=== PATIENT | female | born 1955 | race Caucasian/White ===

== ENCOUNTER 2017-09-12 13:31 | Outpatient (CLI) | payer OTHER ==
--- NOTE | 2017-09-12 15:39 | ULT ---
LEFT LOWER EXTREMITY VENOUS DOPPLER ULTRASOUND 09/12/17 COMPARISON: None. HISTORY: Left knee pain, swelling, assess for DVT. TECHNIQUE: Multiplanar richards scale sonographic imaging of the venous structures of the left lower extremity obtai gera with color flow and spectral analysis. FINDINGS: The left common femoral vein, greater saphenous vein, profunda femoral vein, femoral vein, popliteal vein, and posterior tibial vein are patent. There is a complex heterogenous hypoechoic lesion within the popliteal fossa on the left with no inte rnal blood flow and numerous internal septations measuring at least 3.8 x 1.5 x 5.1 cm. there is no e vidence for DVT on the left. IMPRESSION: No evidence for deep venous thrombosis of the left lower extremity. Prominent complex popliteal fossa cyst. POS: KIM
== END 2017-09-12 13:32 | disposition home or self-care (01) ==
LOC: ULT 13:31
PROVIDERS: ATTEND Family Medicine
DX: M25.562 Pain in left knee (principal); M71.22 Synovial cyst of popliteal space [Baker], left knee

== ENCOUNTER 2018-08-27 07:33 | Outpatient (CLI) | payer OTHER ==
--- NOTE | 2018-08-27 10:15 | MRI ---
MRI LUMBAR SPINE WITHOUT CONTRAST: Date: 08/27/18 HISTORY: M50.36 degenerative disc disease of lumbar spine. Pain. COMPARISON: Radiographs from 08/04/18. FINDINGS: There is mild dilatation of the left proximal ureter with smooth tapering approximately 4.0 cm distal to the renal pelvis. Aortic contour is nonaneurysmal. Mild bilateral paraspinal muscle atrophy. No retroperitoneal adenopathy. No marrow infiltrative process. The conus medullaris terminates at the superior end plate of L2. Levels are as follows: L1-2: Moderate facet arthrosis. No neural foraminal or spinal canal narrowing. L2-3: Mild disc desiccation. Moderate facet arthropathy. Small bilateral subforaminal and posterior disc osteophyte complexes. No significant neural foraminal or spinal canal narrowing. L3-4: Mild disc desiccation. Low grade circumferential disc bulge. Moderate to severe hypertrophic f acet arthrosis. There is moderate left and mild right-sided neural foraminal narrowing. L4-5: There is a left paracentral and subforaminal posterior disc protrusion. This is superimposed o n a broad based posterior disc osteophyte complex. Disc protrusion abuts the left L5 and S1 nerve vianca ts. Moderate left-sided neural foraminal narrowing. Mild right-sided neural foraminal narrowing. Lauren re facet arthropathy. L5-S1: Circumferential disc bulge. Moderate to severe facet arthrosis. Moderate bilateral neural for aminal narrowing. The disc bulge does cause abutment of both S1 nerve roots. IMPRESSION: Spondylosis centered at L4-5 and L5-S1 with a left paracentral and subforaminal L4-5 posterior disc p rotrusion with nerve root abutment. There is also nerve root abutment at L5-S1 due to broad based pos terior disc osteophyte complex. POS: TPC
== END 2018-08-27 07:34 | disposition home or self-care (01) ==
LOC: BICMRI 07:33
PROVIDERS: ATTEND Family Medicine
DX: M51.36 Other intervertebral disc degeneration, lumbar region (principal); M47.816 Spondylosis without myelopathy or radiculopathy, lumbar region; M47.817 Spondylosis without myelopathy or radiculopathy, lumbosacral region; M51.26 Other intervertebral disc displacement, lumbar region; M25.78 Osteophyte, vertebrae
CPT/HCPCS: 72148

== ENCOUNTER 2018-10-07 06:35 | Day surgery (SDC) | payer OTHER ==
[2018-09-29 17:31] VITALS: BMI 28.1
[2018-10-07] MEDS ORDERED: Bupivacaine HCl 0.5%/Epinephrine 1:200,000/PF 30 ml Vial ONE (06:48)
[2018-10-07] MEDS ORDERED: Thrombin 5000 UNITS/5 ML VIAL ONE (06:48)
[2018-10-07] MEDS ORDERED: Midazolam HCl 2 mg/2 ml Vial ONE (07:21)
[2018-10-07] MEDS ORDERED: Famotidine/PF 20 mg/2ml Vial ONE (07:22)
[2018-10-07] MEDS ORDERED: Ketamine 50 MG/ML (10ML VIAL) ONE (07:22)
[2018-10-07] MEDS ORDERED: Fentanyl 100 MCG/2 ML VIAL ONE ×2 (09:14→09:43)
[2018-10-07] MEDS ORDERED: Morphine 4 MG/ML VIAL ONE (09:40)
[2018-10-07] MEDS ORDERED: Morphine 2 MG/ML SYRINGE ONE (09:52)
--- NOTE | 2018-10-07 10:12 | OP ---
DATE OF PROCEDURE: 10/07/2018 CHIEF YEOMAN: Francisco Benavidez PA-C INDICATION: Pain. DIAGNOSIS: Lumbar radiculopathy. PROCEDURE PERFORMED: Left L4 diskectomy. ANESTHESIA: General. DESCRIPTION OF PROCEDURE: The patient was brought into the operating room and placed under general anesthesia. She was flipped from the supine to prone position on the operating room table. A linear incision was planned over the L4 segment. After prepping and draping and after an appropriate preoperative pause, the incision was created. The soft tissues were swept left of midline. A self-retaining retractor was placed in the wound for optimal exposure. After confirming the appropriate level with C-arm fluoroscopy, high-speed cutting drill bit as well as 2, 3, and 4 mm Kerrisons were used to perform a laminectomy along the inferior aspect of L4 and the superior aspect of L5. The descending L5 nerve root was identified and mobilized medially. An L4 protuberant disk mass was identified and incised with an 11 blade knife. The protuberant disk mask was carefully removed until the descending L5 nerve root was well decompressed. The wound was then irrigated. Hemostasis was maintained throughout. The wound was then closed in anatomic layers and a pressure dressing was applied. There were no known procedural complications. Job ID: [id number]
== END 2018-10-07 13:25 | disposition home or self-care (01) ==
LOC: SDC 06:35
PROVIDERS: ATTEND Neurological Surgery
PROC: 0SB20ZZ Excision of Lumbar Vertebral Disc, Open Approach (ICD-10-PCS; principal; 2018-10-07)
DX: M51.16 Intervertebral disc disorders with radiculopathy, lumbar region (principal); E03.9 Hypothyroidism, unspecified; F32.9 Major depressive disorder, single episode, unspecified; J45.909 Unspecified asthma, uncomplicated; M19.90 Unspecified osteoarthritis, unspecified site; Z79.891 Long term (current) use of opiate analgesic; Z79.51 Long term (current) use of inhaled steroids; Z79.899 Other long term (current) drug therapy
CPT/HCPCS: 76000; J0670; J2250; J2270; J3010; S0028

== ENCOUNTER 2019-11-06 07:32 | Emergency (ER) | payer MEDICARE ==
[2019-11-06] MEDS ORDERED: Fentanyl 100 MCG/2 ML VIAL ONE (07:54)
[2019-11-06 08:22] LABS: #Basophils 0.2 thou/uL (0.0-0.2); #Eosinphils 0.3 thou/uL (0.0-0.7); #Monocytes 0.4 thou/uL (0.11-0.59); #Neutrophils 3.3 thou/uL (1.40-6.50); %Basophils 2.6 % (0.0-1.0); %Eosinophils 5.5 % (0.0-10.0); %Lymphocytes 32.8 % (21.0-51.0); %Monocytes 6.1 % (0.0-10.0); ALT (SGPT) 16 U/L (8-55); AST (SGOT) 13 U/L (5-34); Albumin 4.2 g/dL (3.4-4.8); Alkaline Phosphatase 60 U/L (40-110); Anion Gap 14 mmol/L (10-20); BUN (Urea Nitrogen) 14 mg/dL (9.8-20.1); Bilirubin, Total 0.4 mg/dL (0.2-1.2); CRP (Inflammatory) Less than 0.50 mg/dL (= or < 0.5); Calc. Creatinine Clearance 0 mL/min (70-130); Calcium 9.5 mg/dL (7.8-10.44); Carbon Dioxide 25 mmol/L (23-31); Chloride 105 mmol/L (98-107); Estimated GFR-MDRD 69; Glucose 100 mg/dL (80-115); Hemoglobin 14.9 g/dL (12.0-16.0); Mean Corpuscular HGB CONC 32.3 g/dL (32.0-36.0); Mean Corpuscular Hemoglobin 31.9 pg (27.0-31.0); Mean Corpuscular Volume 98.6 fL (78.0-98.0); Platelet Count 250 thou/uL (130-400); Protein, Total 7.2 g/dL (6.0-8.3); RBC Distribution Width 12.3 % (11.5-14.5); Red Blood Cell (RBC) Count 4.67 mill/uL (4.20-5.40); Sodium 140 mmol/L (136-145); White Blood Cell (WBC) Count 6.1 thou/uL (4.8-10.8)
[2019-11-06] MEDS ORDERED: Diazepam 10 MG/2 ML SYRINGE ONE (08:54)
--- NOTE | 2019-11-06 08:56 | CT ---
CT LUMBAR SPINE PERFORMED WITHOUT CONTRAST ENHANCEMENT: History: Worsening back pain and pain radiating down left leg. Comparison: MRI, 08-27-18 FINDINGS: The vertebral bodies are normal in height. There is very minimal spondylolisthesis of approximately 4 mm of L4 on L5. There is some mild disc narrowing at L5-S1. There is no significant periaortic adenopathy. The visualized portions of the kidneys appear unremark able. T12-L1: Unremarkable. L1-2: Unremarkable. L2-3: Degenerative facet changes without canal or foraminal stenosis. L3-4: There is mild disc bulge at this level. There are facet and ligamentous hypertrophic changes, b orderline canal narrowing. Disc bulge is slightly asymmetric to the left but not associated with any significant foraminal narrowing. L4-5: Disc bulge is present at this level. There is a left paracentral disc protrusion seen on the pr ior examination. It is not definitely visualized on today's study. Differentiation between thecal sac and disc material is somewhat difficult. L5-S1: There has been development of a small left paracentral disc protrusion at this level. This byrd s impress slightly on the left S1 nerve root. IMPRESSION: 1. Small left paracentral disc protrusion, however, it does appear to slightly compress upon the left S1 nerve root. 2. The left paracentral disc protrusion at L4-5 that was noted on the prior examination is not defini tely visualized on today's study. POS: Humberto
[2019-11-06 09:46] LABS: Bilirubin Negative (Negative); Blood, Urine Negative (Negative); Clarity Clear (Clear); Glucose, Urine (Dipstick) Normal (Negative); Leukocyte Negative Leu/uL (Negative); Nitrite Negative (Negative); Protein, Urine (Dipstick) Negative (Neg-Trace); Urobilinogen Normal mg/dL (Less than 2)
[2019-11-06] MEDS ORDERED: Dexamethasone 10 MG/ML VIAL ONE (10:21)
[2019-11-06] MEDS ORDERED: Ketorolac Tromethamine 30 MG/ML VIAL ONE (10:21)
== END 2019-11-06 11:26 | disposition home or self-care (01) ==
LOC: ERS 07:32
DX: G54.8 Other nerve root and plexus disorders (principal); J45.909 Unspecified asthma, uncomplicated; F32.9 Major depressive disorder, single episode, unspecified; E03.9 Hypothyroidism, unspecified; Z79.899 Other long term (current) drug therapy
CPT/HCPCS: 51701; 72131; 80053; 81003; 85025; 85652; 86140; 96374; 96375; J1100; J1885; J3010; J3360

== ENCOUNTER 2019-11-10 14:45 | Outpatient (CLI) | payer MEDICARE ==
--- NOTE | 2019-11-10 16:09 | MRI ---
MRI LUMBAR SPINE WITH AND WITHOUT CONTRAST: DATE: 11/10/2019 HISTORY: 64-year-old female with lumbar radiculopathy, low back pain, and decreased range of motion. COMPARISON: 08/27/2018 TECHNIQUE: Multiple sequences obtained in axial and sagittal planes, pre and post IV injection of gadolinium-bas ed contrast agent. FINDINGS: There are 5 lumbar-type vertebrae. Vertebral body heights are maintained. No bone marrow major signal abnormality. Conus medullaris terminates at L2. Cauda equina arrangement within normal limits. T12-L1:Essentially normal. L1-2:Normal L2-3:Mild to moderate bilateral facet DJD. Otherwise normal. L3-4:Moderate right facet DJD. Mild left facet DJD. No central stenosis. No significant neural forami nal stenosis, despite left lateral focal disc herniation which was present on the previous MRI. However, the small medial portion of this disc herniation abuts the left L4 nerve root as it exits th e thecal sac, a new finding (axial image 40 of 64, series 6). No central stenosis. L4-5:Severe bilateral facet DJD causes mild grade 1 anterolisthesis of L4 on L5. There has been inter jae left hemilaminotomy, which results in interval widening of the spinal canal and thecal sac, of generous caliber. There has been interval surgical resection of a significant portion of the left par acentral-lateral focal disc herniation that was previously impinging on the left L5 nerve root. Currently, there is postsurgical scar tissue surrounding that left L5 nerve root at the lateral reces s. No neural foraminal stenosis. Mild-moderate disc space narrowing. L5-S1:No significant neural foraminal stenosis or significant central spinal canal stenosis. Moderate disc space narrowing. Diffuse disc bulge. There is a new finding of a greater amount of material in the left subarticular zone (left lateral recess of anterolateral epidural space). This material is of intermediate signal intensity on T2 WI, has heterogeneous enhancement that surrounds the now posteriorly displaced left S1 nerve root, and has hypointense signal on T1 WI. The surrounding enhanc ement of the epidural space effaces the left lateral aspect of the thecal sac. IMPRESSION: 1) a greater degree of impingement and posterior displacement of the left S1 nerve root at the left l ateral recess of L5-S1 level, with enhancing tissue surrounding the left S1 nerve root. This appears to be a left paracentral-lateral focal small disc herniation that is impinging on the left S1 nerve root. The enhancing tissues probably represent granulation tissue associated with inflammation. Alternatively, if there has been left hemilaminectomy at this level, the enhancement co uld represent postsurgical scar tissue. Recommend correlation with exact levels of previous laminectomy. 2) interval left hemilaminectomy at L4-5, with resection of the previously demonstrated left-sided di sc herniation. Currently, there is postsurgical scar tissue surrounding the left L5 nerve root at the lateral recess. 3) no high-grade central spinal canal stenosis or high-grade neural foraminal stenosis at any level. 4) grade 1 spondylolisthesis at L4-5 due to severe bilateral facet osteoarthrosis, unchanged.
== END 2019-11-10 14:46 | disposition home or self-care (01) ==
LOC: TBSIIMAG 14:45
PROVIDERS: ATTEND Neurological Surgery
DX: M54.16 Radiculopathy, lumbar region (principal); Z98.890 Other specified postprocedural states; M43.16 Spondylolisthesis, lumbar region
CPT/HCPCS: 72158

== ENCOUNTER 2019-12-20 06:32 | Outpatient (CLI) | payer MEDICARE, OTHER | END 2019-12-20 06:33 | disposition home or self-care (01) | LOC: LABBT 06:32 | PROVIDERS: ATTEND Neurological Surgery | DX: Z01.812 Encounter for preprocedural laboratory examination (principal); Z11.59 Encounter for screening for other viral diseases; M54.16 Radiculopathy, lumbar region | CPT/HCPCS: 87635; U0003 ==

== ENCOUNTER 2019-12-27 06:22 | Outpatient (CLI) | payer MEDICARE, OTHER ==
[2019-12-28 13:11] LABS: SARS-CoV-2 MS2 Positive; SARS-CoV-2 N Gene Negative; SARS-CoV-2 S Gene Negative; SARS-CoV-2 orf1ab Negative
== END 2019-12-27 06:23 | disposition home or self-care (01) ==
LOC: LABBT 06:22
PROVIDERS: ATTEND Neurological Surgery
DX: Z01.812 Encounter for preprocedural laboratory examination (principal); Z11.59 Encounter for screening for other viral diseases; M54.16 Radiculopathy, lumbar region
CPT/HCPCS: 87635; U0003

== ENCOUNTER 2019-12-31 07:10 | Day surgery (SDC) | payer MEDICARE ==
[2019-12-16 13:42] VITALS: BMI 28.0
--- NOTE | 2019-12-31 08:10 | HP ---
HISTORY OF PRESENT ILLNESS: Ms. Sanders was sent to us for prior lumbar decompression and diskectomy back in the later spring. She unfortunately returns now with rather severe left-sided lumbar radiculopathy that would fit well L5 or S1 pattern. She has a new MRI scan that reveals a larger disk herniation at L5 on the left. It is compressing the left S1 nerve root. She hopes to discuss possible surgical intervention to correct this given the success of her last operation. PAST MEDICAL HISTORY: Significant for hypothyroidism, depression, arthritis, seasonal allergies, asthma. PAST SURGICAL HISTORY: section, unspecified nasal surgery, lumbar diskectomy. CURRENT MEDICATIONS: None listed. ALLERGIES: NO KNOWN DRUG ALLERGIES. PHYSICAL EXAMINATION: Deferred for telehealth visit. ASSESSMENT: Lumbar disk herniation with radiculopathy. PLAN: Dr. Anderson met with the patient, reviewed imaging, and advocated for a left L5-S1 decompression with possible diskectomy. He explained the patient risks, benefits, and alternatives to the procedure. The patient expressed understanding and elected to move forward with surgery as discussed. I do believe that the patient is mentally competent and capable of making medical decisions for herself. We will move forward with surgery as planned. Job ID: [id number]
[2019-12-31] MEDS ORDERED: Bupivacaine PF 0.5% 30 ML VIAL ONE (09:48)
[2019-12-31] MEDS ORDERED: EPINEPHrine 1 MG/ML AMP ONE (09:48)
[2019-12-31] MEDS ORDERED: Midazolam HCl 2 mg/2 ml Vial ONE (10:25)
[2019-12-31] MEDS ORDERED: Fentanyl 100 MCG/2 ML VIAL ONE ×4 (10:25→12:37)
[2019-12-31] MEDS ORDERED: diphenhydrAMINE 50 MG/ML VIAL ONE (10:50)
[2019-12-31] MEDS ORDERED: EPHEDRINE 25 MG/5 ML SYRINGE ONE (10:50)
[2019-12-31] MEDS ORDERED: Lidocaine 1% PF 5 ML VIAL ONE (10:50)
[2019-12-31] MEDS ORDERED: Dexamethasone 20 MG/5 ML VIAL ONE (10:50)
[2019-12-31] MEDS ORDERED: Ketorolac Tromethamine 30 MG/ML VIAL ONE (10:50)
[2019-12-31] MEDS ORDERED: PROPOFOL 200 MG/20 ML VIAL ONE (10:50)
[2019-12-31] MEDS ORDERED: Rocuronium Bromide 10 MG/ML (10ML VIAL) ONE (10:50)
[2019-12-31] MEDS ORDERED: Ondansetron PF 4 MG/2 ML Vial ONE (10:50)
[2019-12-31] MEDS ORDERED: SUGAMMADEX SODIUM 200 MG/2 ML VIAL ONE (11:23)
--- NOTE | 2019-12-31 12:32 | OP ---
DATE OF PROCEDURE: 12/31/2019 ELECTRONIC OPERATOR: Francisco Benavidez PA-C INDICATION: Pain. DIAGNOSIS: Left S1 radiculopathy. PROCEDURE PERFORMED: Left L5 diskectomy. ANESTHESIA: General. DESCRIPTION OF PROCEDURE: The patient was brought into the operating room and placed under general anesthesia. She was flipped from the supine to prone position on the operating room table. A linear incision was planned over L5-S1. After prepping and draping and after an appropriate preoperative pause, the incision was created. The soft tissues were swept away from midline. A self-retaining retractor was placed in the wound for optimal exposure. After confirming the appropriate level with C-arm fluoroscopy, an annulotomy was performed along the inferior aspect of L5 and the superior aspect of S1. The decompression was extended laterally to encompass the medial aspect of the facet joint to further decompress the lateral recesses. The S1 nerve root was identified and mobilized medially. An annulotomy was performed in the L5 disk, where a protuberant disk mass was removed. After decompressing, the wound was irrigated. Hemostasis was maintained throughout. The wound was then closed in anatomic layers and a pressure dressing was applied. There were no known procedural complication. Job ID: [id number]
== END 2019-12-31 15:24 | disposition home or self-care (01) ==
LOC: SDC 07:10
PROVIDERS: ATTEND Neurological Surgery
PROC: 0SB20ZZ Excision of Lumbar Vertebral Disc, Open Approach (ICD-10-PCS; principal; 2019-12-31)
DX: M51.16 Intervertebral disc disorders with radiculopathy, lumbar region (principal); E03.9 Hypothyroidism, unspecified; F32.9 Major depressive disorder, single episode, unspecified; M19.90 Unspecified osteoarthritis, unspecified site; J45.909 Unspecified asthma, uncomplicated; Z79.899 Other long term (current) drug therapy
CPT/HCPCS: 76000; J0171; J0690; J1100; J1200; J1885; J2001; J2250; J2405; J2704; J3010; J7620; S0020

== ENCOUNTER 2020-03-21 14:32 | Outpatient (CLI) | payer MEDICARE ==
[~2020-03-21 14:32] MED LIST: Magnevist 469MG/ML 20 ML VIAL ONE
--- NOTE | 2020-03-21 16:38 | MRI ---
MRI Lumbar Spine W WO Con History: M [age] lumbar radiculopathy Comparison: MRI lumbar spine October 2019 Findings: Aortic contour is nonaneurysmal. No retroperitoneal periaortic adenopathy. No hydronephrosis. No marrow infiltrative process. Levels are as follows: L1/L2: Normal disc height and hydration. No neural foraminal or spinal canal narrowing. L2/L3: Normal disc height with minimal desiccation. Mild hypertrophic facet arthrosis. Small asymmetr ic left lateral recess and right lateral recess disc bulges. L3/L4: Minimal disc desiccation height loss. Similar appearance of the left lateral recess disc herni ation which abuts the exiting and traversing nerve roots. Moderate hypertrophic facet arthrosis on the left and moderate to severe on the right. Moderate left and mild right neural foraminal narrowing . No spinal canal narrowing. L4/L5: Mild disc desiccation and height loss. Severe facet arthropathy with joint space narrowing and osteophyte formation. 1 mm anterolisthesis. Moderate disc bulge. Mild bilateral neural foraminal narrowing. The amount of enhancing granulation tissue along the exiting left L4 nerve root as decreased. L5/S1: Mild to moderate disc desiccation and height loss. Small circumferential disc bulge. Moderate left neural foraminal narrowing. Postsurgical scar information from recent left L5 discectomy and hemifacetectomy. Impression: Findings of recent left L5 discectomy and L5/S1 hemifacetectomy with decreased mass effec t upon the left S1 nerve root.
== END 2020-03-21 14:33 | disposition home or self-care (01) ==
LOC: TBSIIMAG 14:32
PROVIDERS: ATTEND Neurological Surgery
DX: M54.16 Radiculopathy, lumbar region (principal); Z98.890 Other specified postprocedural states
CPT/HCPCS: 72158; 82565; A9579

== ENCOUNTER 2020-12-27 12:52 | Outpatient (CLI) | payer MEDICARE | END 2020-12-27 12:53 | disposition home or self-care (01) | LOC: BICMAMMO 12:52 | PROVIDERS: ATTEND Physician Assistant | DX: Z12.31 Encounter for screening mammogram for malignant neoplasm of breast (principal); Z80.3 Family history of malignant neoplasm of breast | CPT/HCPCS: 77063; 77067 ==

== ENCOUNTER 2021-04-20 07:12 | Inpatient (IN) | payer MEDICARE ==
[2021-04-20 08:14] LABS: Amphetamine Not Detected (NotDetected); Barbiturates Screen Not Detected (NotDetected); Benzodiazepine Screen Not Detected (NotDetected); Cocaine Metabolite Screen Not Detected (NotDetected); Methadone Not Detected (NotDetected); Methamphetamine Not Detected (NotDetected); Opiate Screen Not Detected (NotDetected); Oxycodone Screen Not Detected (NotDetected); Phencyclidine (PCP) Not Detected (NotDetected); THC/Cannabinoid Screen Not Detected (NotDetected); Tricyclic Screen Not Detected (NotDetected)
[2021-04-20 08:32] LABS: Bilirubin Negative (Negative); Blood, Urine Negative (Negative); Clarity Clear (Clear); Glucose, Urine (Dipstick) Normal (Negative); Ketone, Urine Negative (Negative); Leukocyte Negative Leu/uL (Negative); Nitrite Negative (Negative); Protein, Urine (Dipstick) Negative (Neg-Trace); Specific Gravity, Urine 1.019 (1.002-1.036); Urobilinogen Normal mg/dL (Less than 2)
[2021-04-20 08:41] LABS: ALT (SGPT) 27 U/L (8-55); AST (SGOT) 18 U/L (5-34); Albumin 3.5 g/dL (3.4-4.8); Alkaline Phosphatase 96 U/L (40-110); Anion Gap 15 mmol/L (10-20); BUN (Urea Nitrogen) 11 mg/dL (9.8-20.1); Bilirubin, Total 0.4 mg/dL (0.2-1.2); Calc. Creatinine Clearance 0 mL/min (70-130); Calcium 8.8 mg/dL (7.8-10.44); Carbon Dioxide 22 mmol/L (23-31); Chloride 109 mmol/L (98-107); Globulin 2.8 g/dL (2.4-3.5); Glucose 92 mg/dL (80-115); Potassium 4.7 mmol/L (3.5-5.1); Protein, Total 6.3 g/dL (5.8-8.1); Sodium 141 mmol/L (136-145)
[2021-04-20 08:58] LABS: Acetaminophen Less than 6.0 mcg/mL (10.0-30.0); Alcohol Less than 10 mg/dL (Less than 10); Salicylate Less than 8.0 mg/dL (15.0-30.0)
[2021-04-20 09:19] LABS: #Basophils 0.1 thou/uL (0.0-0.2); #Eosinphils 0.4 thou/uL (0.0-0.7); #Lymphocytes 2.4 thou/uL (1.20-3.40); #Monocytes 0.7 thou/uL (0.11-0.59); #Neutrophils 4.5 thou/uL (1.40-6.50); %Basophils 0.9 % (0.0-1.0); %Eosinophils 5.3 % (0.0-10.0); %Lymphocytes 29.3 % (21.0-51.0); %Monocytes 8.6 % (0.0-10.0); %Neutrophils 55.9 % (42.0-75.0); Hemoglobin 14.6 g/dL (12.0-16.0); Mean Corpuscular HGB CONC 31.8 g/dL (32.0-36.0); Mean Corpuscular Volume 97.4 fL (78.0-98.0); Mean Platelet Volume 7.5 fL (7.4-10.4); Platelet Count 291 thou/uL (130-400); Red Blood Cell (RBC) Count 4.72 mill/uL (4.20-5.40); White Blood Cell (WBC) Count 8.1 thou/uL (4.8-10.8)
[2021-04-20 09:24] LABS: PTT 24.3 sec (22.9-36.1); Prothrombin Time 12.8 sec (12.0-14.7)
[2021-04-20] MEDS ORDERED: cefTRIAXone\\ROCEPHIN 2 GM VIAL ONE (09:45)
[2021-04-20] MEDS ORDERED: Azithromycin 500 MG VIAL ONE (09:45)
[2021-04-20] MEDS ORDERED: Acetaminophen 325 MG TAB PO PRN (10:00)
[2021-04-20] MEDS ORDERED: HYDROcodone/Acetaminophen 5/325 mg Tablet PO PRN (10:00)
[2021-04-20] MEDS ORDERED: Enoxaparin Sodium 40 MG/0.4 ML SYRINGE SC SCH (10:00)
[2021-04-20 10:37] LABS: SARS-CoV-2 NAA Rapid Test Not Detected (NotDetected)
[2021-04-20] MEDS ORDERED: Albuterol Sulfate 1.25 MG/3 ML NEB INH PRN (10:43)
[2021-04-20] MEDS ORDERED: Magnevist 469MG/ML 20 ML VIAL ONE ×2 (12:13)
[2021-04-20 13:07] LABS: Lactic Acid 0.9 mmol/L (0.5-2.2)
[2021-04-20 13:30] VITALS: BMI 29.8
[2021-04-20 13:32] LABS: Free T4 (Free Thyroxine) 1.07 ng/dL (0.70-1.48)
[2021-04-20] MEDS: Sodium Chloride 0.9% 1,000 ML IV SCH ×2 (14:32→21:47)
[2021-04-20] MEDS: Acetaminophen/Codeine 30-300mg Tablet PO PRN (16:52)
[2021-04-20] MEDS: Ondansetron PF 4 MG/2 ML Vial IVP PRN (17:52)
[2021-04-20] MEDS: Cholecalciferol 1,000 UNITS (25 MCG) TAB PO SCH (21:45)
[2021-04-21] MEDS: Sodium Chloride 0.9% 1,000 ML IV SCH ×2 (05:45→16:47)
[2021-04-21] MEDS: Levothyroxine Sodium 100 MCG TAB PO SCH (05:52)
[2021-04-21] MEDS: Ondansetron PF 4 MG/2 ML Vial IVP PRN ×2 (05:52→16:44)
[2021-04-21] MEDS: FLUoxetine HCl 20 MG CAP PO SCH (08:18)
[2021-04-21] MEDS: Loratadine 10 MG TAB PO SCH (08:18)
[2021-04-21] MEDS: Enoxaparin Sodium 40 MG/0.4 ML SYRINGE SC SCH (08:18)
[2021-04-21] MEDS: cefTRIAXone\\ROCEPHIN 1 GM in Sodium Chloride 0.9% 100 ML IVPB SCH (08:24)
[2021-04-21] MEDS: Mometasone 200 MCG/Formoterol 5 MCG 120 PUFF INHALER INH SCH (08:24)
[2021-04-21] MEDS: Azithromycin 500 MG in Sodium Chloride 0.9% 250 ML 250 ML IVPB SCH (10:35)
[2021-04-21] MEDS: Fluticasone Propionate Nasal Spray 16 gm Bottle NASAL SCH (10:35)
[2021-04-21] MEDS: Cholecalciferol 1,000 UNITS (25 MCG) TAB PO SCH (20:26)
[2021-04-21] MEDS: Acetaminophen/Codeine 30-300mg Tablet PO PRN (22:24)
[2021-04-22] MEDS: Sodium Chloride 0.9% 1,000 ML IV SCH ×2 (01:15→08:24)
[2021-04-22] MEDS: Levothyroxine Sodium 100 MCG TAB PO SCH (05:28)
[2021-04-22] MEDS: FLUoxetine HCl 20 MG CAP PO SCH (08:20)
[2021-04-22] MEDS: Enoxaparin Sodium 40 MG/0.4 ML SYRINGE SC SCH (08:20)
[2021-04-22] MEDS: cefTRIAXone\\ROCEPHIN 1 GM in Sodium Chloride 0.9% 100 ML IVPB SCH (08:20)
[2021-04-22] MEDS: Loratadine 10 MG TAB PO SCH (08:21)
[2021-04-22] MEDS: Mometasone 200 MCG/Formoterol 5 MCG 120 PUFF INHALER INH SCH (08:56)
[2021-04-22] MEDS: Fluticasone Propionate Nasal Spray 16 gm Bottle NASAL SCH (08:57)
[2021-04-22] MEDS: Azithromycin 500 MG in Sodium Chloride 0.9% 250 ML 250 ML IVPB SCH (09:15)
[2021-04-22] MEDS: Cholecalciferol 1,000 UNITS (25 MCG) TAB PO SCH (20:44)
[2021-04-23] MEDS: Acetaminophen/Codeine 30-300mg Tablet PO PRN (01:58)
[2021-04-23] MEDS: Levothyroxine Sodium 100 MCG TAB PO SCH (06:36)
[2021-04-23] MEDS: Mometasone 200 MCG/Formoterol 5 MCG 120 PUFF INHALER INH SCH (06:36)
[2021-04-23 07:32] VITALS: BP 122/77; TEMP 98.2
[2021-04-23] MEDS: Fluticasone Propionate Nasal Spray 16 gm Bottle NASAL SCH (08:19)
[2021-04-23] MEDS: Loratadine 10 MG TAB PO SCH (08:19)
[2021-04-23] MEDS: FLUoxetine HCl 20 MG CAP PO SCH (08:19)
[2021-04-23] MEDS: Enoxaparin Sodium 40 MG/0.4 ML SYRINGE SC SCH (08:19)
== END 2021-04-23 14:35 | disposition home health service (06) | DRG 71 ==
LOC: ERS 07:12 → T4-B 09:35
PROVIDERS: ADMIT Internal Medicine; ATTEND Internal Medicine
DX: G93.40 Encephalopathy, unspecified (principal); R47.01 Aphasia; E87.2 Acidosis; J45.909 Unspecified asthma, uncomplicated; E03.9 Hypothyroidism, unspecified; F32.9 Major depressive disorder, single episode, unspecified; G89.29 Other chronic pain; Z20.822 Contact with and (suspected) exposure to COVID-19; M17.12 Unilateral primary osteoarthritis, left knee; R33.9 Retention of urine, unspecified; Z79.890 Hormone replacement therapy; Z79.51 Long term (current) use of inhaled steroids; Z79.899 Other long term (current) drug therapy
CPT/HCPCS: 36415; 36416; 70450; 70496; 70498; 71045; 72158; 76856; 80053; 80306; 80307; 81003; 83605; 84145; 84146; 84439; 84443; 84481; 84484; 85025; 85610; 85730; 87040; 93005; 96374; A9579; J0456; J0696; J1650; J2405; J3490; J7050; Q9967; U0002

== ENCOUNTER 2021-06-04 15:00 | Outpatient (CLI) | payer MEDICARE | END 2021-06-04 15:01 | disposition home or self-care (01) | LOC: BICMRI 15:00 | PROVIDERS: ATTEND Neurological Surgery | DX: M47.22 Other spondylosis with radiculopathy, cervical region (principal) | CPT/HCPCS: 72141 ==

== ENCOUNTER 2022-01-11 14:19 | Outpatient (CLI) | payer MEDICARE | END 2022-01-11 14:20 | disposition home or self-care (01) | LOC: BICMAMMO 14:19 | PROVIDERS: ATTEND Physician Assistant | DX: Z12.31 Encounter for screening mammogram for malignant neoplasm of breast (principal); Z80.3 Family history of malignant neoplasm of breast | CPT/HCPCS: 77063; 77067 ==

== ENCOUNTER 2022-05-30 09:10 | Outpatient (CLI) | payer MEDICARE, OTHER ==
[2022-05-30 11:08] LABS: INR-International Normal Ratio 0.9
[2022-05-30 11:10] LABS: #Basophils 0.1 10x3/uL (0.0-0.2); #Eosinphils 0.2 10x3/uL (0.0-0.5); #Monocytes 0.5 10x3/uL (0.0-1.1); #Neutrophils 3.8 10x3/uL (1.5-8.4); %Basophils 0.8 % (0.0-2.0); %Eosinophils 2.5 % (0.0-6.0); %Monocytes 7.1 % (0.0-10.0); %Neutrophils 54.2 % (40.0-75.0); Hemoglobin 15.2 g/dL (12.0-15.5); Mean Corpuscular HGB CONC 33.6 g/dL (32.0-36.0); Mean Corpuscular Hemoglobin 32.1 pg (27.0-33.0); Mean Corpuscular Volume 95.6 fl (81.6-98.3); Platelet Count 307 10x3/uL (150-450); RBC Distribution Width 13.2 % (11.5-14.5); Red Blood Cell (RBC) Count 4.74 10x6/uL (3.90-5.03); White Blood Cell (WBC) Count 7.1 10x3/uL (3.5-10.5)
[2022-05-30 11:11] LABS: Anion Gap 16 mmol/L (10-20); BUN (Urea Nitrogen) 9 mg/dL (9.8-20.1); Calc. Creatinine Clearance 0 mL/min (70-130); Calcium 9.8 mg/dL (7.8-10.44); Carbon Dioxide 21 mmol/L (23-31); Chloride 108 mmol/L (98-107); Estimated GFR 81; Glucose 110 mg/dL (80-115); Potassium 4.5 mmol/L (3.5-5.1); Sodium 140 mmol/L (136-145)
== END 2022-05-30 09:11 | disposition home or self-care (01) ==
LOC: LABBT 09:10
PROVIDERS: ATTEND Orthopaedic Surgery
DX: Z01.818 Encounter for other preprocedural examination (principal); M17.12 Unilateral primary osteoarthritis, left knee
CPT/HCPCS: 80048; 85025; 85610; 87081; 93005; 93010

== ENCOUNTER 2022-06-04 05:34 | Inpatient (IN) | payer OTHER ==
[2022-05-31 15:02] VITALS: BMI 28.8
[2022-06-04] MEDS ORDERED: Vancomycin (BATCH) 1.5 GRAM/300 ML BAG ONE (06:03)
[2022-06-04] MEDS ORDERED: Tranexamic Acid 1,000 MG/10 ML VIAL ONE (06:03)
[2022-06-04] MEDS ORDERED: Sodium Chloride 0.9% 100 ML ONE ×2 (06:03→06:54)
[2022-06-04] MEDS ORDERED: Bupivacaine/Epinephrine 0.25% 30 ML VIAL ONE (06:25)
[2022-06-04] MEDS ORDERED: Ropivacaine 0.5% HCl/PF (150 MG/30 ML VIAL) ONE (06:44)
[2022-06-04] MEDS ORDERED: fentaNYL PF 100 MCG/2 ML SYRINGE ONE ×2 (06:44→08:20)
[2022-06-04] MEDS ORDERED: Midazolam HCl 2 mg/2 ml Vial ONE (06:44)
[2022-06-04] MEDS ORDERED: CEFAZOLIN 2 GM VIAL ONE (06:54)
[2022-06-04 07:20] LABS: SARS-CoV-2 NAA Rapid Test Not Detected (NotDetected)
[2022-06-04] MEDS ORDERED: Ketorolac Tromethamine 30 MG/ML VIAL ONE (07:22)
[2022-06-04] MEDS ORDERED: Ondansetron PF 4 MG/2 ML Vial ONE (07:22)
[2022-06-04] MEDS ORDERED: PROPOFOL 200 MG/20 ML VIAL ONE (07:22)
[2022-06-04] MEDS ORDERED: Dexamethasone 20 MG/5 ML VIAL ONE (07:22)
[2022-06-04] MEDS ORDERED: ePHEDrine 50 MG/ML VIAL ONE (07:22)
[2022-06-04] MEDS ORDERED: Promethazine HCl 25 MG/ML VIAL IVPB PRN (08:08)
[2022-06-04] MEDS ORDERED: PACU-Morphine 4MG/ML VIAL SLOW IVP PRN (08:08)
[2022-06-04] MEDS ORDERED: Promethazine HCl 25 MG/ML VIAL IM PRN ×3 (08:08→09:00)
[2022-06-04] MEDS ORDERED: Ondansetron HCl/PF 4 MG/2 ML Vial IVP PRN (08:08)
[2022-06-04] MEDS ORDERED: Acetaminophen 325 MG TAB PO PRN (08:59)
[2022-06-04] MEDS ORDERED: Ondansetron PF 4 MG/2 ML Vial IVP PRN ×2 (08:59→09:00)
[2022-06-04] MEDS ORDERED: diphenhydrAMINE 25 MG CAP PO PRN (08:59)
[2022-06-04] MEDS ORDERED: traMADol HCl 50 MG TAB PO PRN (09:00)
[2022-06-04] MEDS ORDERED: Ropivacaine 0.2% 550 ML 550 ML NERVE BLCK SCH (09:00)
[2022-06-04] MEDS ORDERED: FENTANYL 50 MCG/ML 1 ML VIAL SLOW IVP PRN (09:00)
[2022-06-04] MEDS ORDERED: Zolpidem Tartrate 5 MG TAB PO PRN (09:00)
[2022-06-04] MEDS ORDERED: FENTANYL 50 MCG/ML 1 ML VIAL ONE ×2 (09:18→09:37)
[2022-06-04] MEDS: Sodium Chloride 0.9% 1,000 ML IV SCH (10:33)
[2022-06-04] MEDS: Aspirin 81 mg Enteric Coated Tablet PO SCH ×2 (10:33→21:20)
[2022-06-04] MEDS: HYDROcodone/Acetaminophen 10/325 mg Tablet PO PRN ×2 (10:38→16:58)
[2022-06-04] MEDS: Ketorolac Tromethamine 30 MG/ML VIAL IVP SCH ×2 (10:39→18:53)
[2022-06-04] MEDS: traMADol HCl 50 MG TAB PO PRN ×2 (13:17→21:26)
[2022-06-04] MEDS: CEFAZOLIN 2 GM in Sodium Chloride 0.9% 100 ML IVPB SCH ×2 (14:14→23:21)
[2022-06-04] MEDS ORDERED: Vancomycin 1.5 GRAM/300 ML BAG 1.5 GM in Premix Bag 1 BAG IVPB SCH (20:00)
[2022-06-04] MEDS: Gabapentin 300 MG CAP PO SCH (21:20)
[2022-06-05] MEDS: Ketorolac Tromethamine 30 MG/ML VIAL IVP SCH ×5 (00:06→23:10)
[2022-06-05] MEDS: Zolpidem Tartrate 5 MG TAB PO PRN ×2 (00:06→20:08)
[2022-06-05] MEDS: Sodium Chloride 0.9% 1,000 ML IV SCH ×4 (01:39→22:37)
[2022-06-05 05:11] LABS: Hemoglobin 10.9 g/dL (12.0-16.0); Mean Corpuscular HGB CONC 32.3 g/dL (32.0-36.0); Mean Corpuscular Hemoglobin 32.2 pg (27.0-31.0); Mean Corpuscular Volume 99.5 fl (78.0-98.0); Mean Platelet Volume 7.6 fL (7.4-10.4); Platelet Count 213 10x3/uL (130-400); RBC Distribution Width 11.7 % (11.5-14.5); Red Blood Cell (RBC) Count 3.39 mill/uL (4.20-5.40); White Blood Cell (WBC) Count 9.6 10x3/uL (4.8-10.8)
[2022-06-05] MEDS: Ferrous Gluconate 324 MG TAB PO SCH ×2 (08:22→17:31)
[2022-06-05] MEDS: Aspirin 81 mg Enteric Coated Tablet PO SCH ×2 (08:22→20:08)
[2022-06-05] MEDS: Multivitamin W/ Minerals 1 TAB PO SCH (08:22)
[2022-06-05] MEDS: Gabapentin 300 MG CAP PO SCH ×2 (08:24→20:08)
[2022-06-05] MEDS: Senokot S 8.6-50 MG TAB PO SCH ×2 (08:25→20:09)
[2022-06-05] MEDS: traMADol HCl 50 MG TAB PO PRN (08:26)
[2022-06-05] MEDS: HYDROcodone/Acetaminophen 10/325 mg Tablet PO PRN ×2 (12:41→17:32)
[2022-06-06] MEDS: HYDROcodone/Acetaminophen 10/325 mg Tablet PO PRN ×3 (01:52→12:57)
[2022-06-06] MEDS: Ketorolac Tromethamine 30 MG/ML VIAL IVP SCH (05:14)
[2022-06-06 06:07] LABS: Hemoglobin 11.3 g/dL (12.0-16.0); Mean Corpuscular HGB CONC 32.7 g/dL (32.0-36.0); Mean Corpuscular Hemoglobin 32.9 pg (27.0-31.0); Mean Platelet Volume 7.9 fL (7.4-10.4); Platelet Count 204 10x3/uL (130-400); RBC Distribution Width 11.6 % (11.5-14.5); Red Blood Cell (RBC) Count 3.43 mill/uL (4.20-5.40); White Blood Cell (WBC) Count 9.4 10x3/uL (4.8-10.8)
[2022-06-06] MEDS: Aspirin 81 mg Enteric Coated Tablet PO SCH (08:45)
[2022-06-06] MEDS: Ferrous Gluconate 324 MG TAB PO SCH (08:45)
[2022-06-06] MEDS: Gabapentin 300 MG CAP PO SCH (08:45)
[2022-06-06] MEDS: Multivitamin W/ Minerals 1 TAB PO SCH (08:45)
[2022-06-06] MEDS: Senokot S 8.6-50 MG TAB PO SCH (08:45)
[2022-06-06] MEDS: traMADol HCl 50 MG TAB PO PRN (08:46)
[2022-06-06 11:00] VITALS: BP 105/67; TEMP 99
== END 2022-06-06 13:00 | disposition home health service (06) | DRG 470 ==
LOC: SDC 05:34 → EDSTATUS 09:00 → SURG B 10:14
PROVIDERS: ADMIT Orthopaedic Surgery; ATTEND Orthopaedic Surgery
PROC: 0SRD0J9 Replacement of Left Knee Joint with Synthetic Substitute, Cemented, Open Approach (ICD-10-PCS; principal; 2022-06-04)
DX: M17.12 Unilateral primary osteoarthritis, left knee (principal); Z20.822 Contact with and (suspected) exposure to COVID-19; J45.909 Unspecified asthma, uncomplicated; E03.9 Hypothyroidism, unspecified; F32.A Depression, unspecified; Z96.1 Presence of intraocular lens; M54.17 Radiculopathy, lumbosacral region; Z91.041 Radiographic dye allergy status; Z86.16 Personal history of COVID-19; Z79.899 Other long term (current) drug therapy; Z79.890 Hormone replacement therapy
CPT/HCPCS: 36415; 85027; A4306; C1713; C1776; J1100; J1885; J2250; J2405; J2704; J2795; J3010; J3370; J3490; U0002

== ENCOUNTER 2022-07-06 23:00 | Emergency (ER) | payer MEDICARE, OTHER ==
[2022-07-06] MEDS ORDERED: Morphine 4 MG/ML VIAL ONE (23:28)
[2022-07-06] MEDS ORDERED: Ketorolac Tromethamine 30 MG/ML VIAL ONE (23:28)
[2022-07-07 00:05] LABS: #Basophils 0.1 thou/uL (0.0-0.2); #Eosinphils 0.5 thou/uL (0.0-0.7); #Monocytes 0.7 thou/uL (0.11-0.59); #Neutrophils 4.1 thou/uL (1.40-6.50); %Basophils 0.6 % (0.0-1.0); %Eosinophils 6.5 % (0.0-10.0); %Lymphocytes 36.2 % (21.0-51.0); %Monocytes 7.9 % (0.0-10.0); %Neutrophils 48.7 % (42.0-75.0); Hemoglobin 13.2 g/dL (12.0-16.0); Mean Corpuscular HGB CONC 34.4 g/dL (32.0-36.0); Mean Corpuscular Hemoglobin 34.2 pg (27.0-31.0); Mean Corpuscular Volume 99.5 fl (78.0-98.0); Mean Platelet Volume 7.7 fL (7.4-10.4); Platelet Count 249 10x3/uL (130-400); Red Blood Cell (RBC) Count 3.87 mill/uL (4.20-5.40); White Blood Cell (WBC) Count 8.3 10x3/uL (4.8-10.8)
[2022-07-07 00:21] LABS: ALT (SGPT) 16 U/L (8-55); AST (SGOT) 14 U/L (5-34); Albumin 3.8 g/dL (3.4-4.8); Alkaline Phosphatase 89 U/L (40-110); Anion Gap 14 mmol/L (10-20); BUN (Urea Nitrogen) 14 mg/dL (9.8-20.1); Bilirubin, Total 0.3 mg/dL (0.2-1.2); Calc. Creatinine Clearance 0 mL/min (70-130); Calcium 9.6 mg/dL (7.8-10.44); Carbon Dioxide 24 mmol/L (23-31); Chloride 104 mmol/L (98-107); Estimated GFR 68; Globulin 2.8 g/dL (2.4-3.5); Glucose 115 mg/dL (80-115); Potassium 4.2 mmol/L (3.5-5.1); Protein, Total 6.6 g/dL (5.8-8.1); Sodium 138 mmol/L (136-145)
== END 2022-07-07 00:57 | disposition home or self-care (01) ==
LOC: ERS 23:00
DX: G89.18 Other acute postprocedural pain (principal); M25.562 Pain in left knee; E03.9 Hypothyroidism, unspecified
CPT/HCPCS: 36415; 80053; 85025; 85379; 96372; J1885; J2270

== ENCOUNTER 2022-07-30 08:49 | Outpatient (CLI) | payer OTHER, MEDICAID | END 2022-07-30 08:50 | disposition home or self-care (01) | LOC: ULT 08:49 | PROVIDERS: ATTEND Physician Assistant | DX: M25.562 Pain in left knee (principal) ==